=== PATIENT | male | born 1945 | race Caucasian/White ===

== ENCOUNTER → 2016-03-27 | Outpatient (CLI) | payer MEDICARE ==
[2016-03-27 12:03] LABS: Blood Urea Nitrogen 18 mg/dL (9-20); Non-African American GFR(MDRD) >60 (>60 ml/min/1.73 sqM)
== END | disposition home or self-care (01) ==
LOC: LABPAT 11:04
PROVIDERS: ATTEND Nurse Practitioner Family
DX: Z01.812 Encounter for preprocedural laboratory examination (principal); H93.19 Tinnitus, unspecified ear; H90.42 Sensorineural hearing loss, unilateral, left ear, with unrestricted hearing on the contralateral side
CPT/HCPCS: 36415; 82565; 84520

== ENCOUNTER → 2016-03-28 | Outpatient (CLI) | payer MEDICARE ==
--- NOTE | 2016-03-28 15:28 | MR ---
EXAMINATION TYPE: MR brain and iac wo/w con DATE OF EXAM: 03/28/2016 8:42 AM COMPARISON: NONE HISTORY: Tinnitus, hearing loss left, brain abscess 1998. CONTRAST: Performed utilizing 16 mL intravenous MultiHance gadolinium contrast. TECHNIQUE: Multiplanar, multiecho imaging on a 3.0 Jennifer magnet is performed through the brain. Atte ntion is paid to the internal auditory canals with thin section imaging. Postcontrast imaging is per formed through the internal auditory canals. FINDINGS: Craniovertebral junction is normal. The pituitary is normal. Diffusion-weighted imaging is performed. No suspicious hyperintensity is present to suggest an acute intracranial infarct or ac yocha dehe ischemic area. Signal within the brain has scattered areas of hyperintensity which are non-speci fic but could be related to microvascular ischemic changes. There is an old subcortical infarct withi n the right frontal lobe. Thin section imaging is performed through the internal auditory canals and cerebellar pontine angles. No cerebellar pontine angle masses are evident. The internal auditory canals appear normal without expansion or erosion. Postcontrast imaging was performed. No suspicious enhancement is evident within the internal audito ry canals or the included portions of the brain. Note is made of a retention cyst within the right maxillary sinus. IMPRESSIONS: 1. Normal internal auditory canals. 2. 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 3. Nonspecific punctate chronic appearing white matter ischemic changes.
== END | disposition home or self-care (01) ==
LOC: RADMRIMAIN 07:20
PROVIDERS: ATTEND Otolaryngology
DX: R90.89 Other abnormal findings on diagnostic imaging of central nervous system (principal); H90.42 Sensorineural hearing loss, unilateral, left ear, with unrestricted hearing on the contralateral side
CPT/HCPCS: 70553; A9577

== ENCOUNTER 2018-07-22 12:51 | Day surgery (SDC) | payer MEDICARE ==
[2018-07-20 13:07] VITALS: BMI 27.3
[~2018-07-22 12:51] MED LIST: LACTATED RINGERS 1,000 ML IV SCH
[2018-07-22 13:11] VITALS: TEMP 98.4
[2018-07-22] MEDS ORDERED: LIDOCAINE 1% 20 ML VIAL (10MG/ML) FOR IV START INTRADERMA ONE (13:11)
[2018-07-22] MEDS ORDERED: LIDOCAINE 1% INJ 10MG/ML (20 ML MDV) ONE (14:49)
[2018-07-22] MEDS ORDERED: PROPOFOL 10 MG/ML 20 ML VIAL IV ONE (14:49)
[2018-07-22 15:52] VITALS: BP 157/83; PULSE 69; RESP 16
--- NOTE | 2018-07-26 09:19 | P.OP ---
Date of Procedure: 07/22/18 Preoperative Diagnosis: Screening Postoperative Diagnosis: Diverticulosis Procedure(s) Performed: Colonoscopy Surgeon: Tamara Robledo Pathology: none sent Condition: stable Disposition: same day Indications for Procedure: 72-year-old male presents for screening colonoscopy. Risks, benefits and alternatives were explained to the patient. Patient did provide consent. Operative Findings: Diverticulosis Description of Procedure: The patient was brought into the endoscopy suite. The patient was placed in left lateral decubitus position and adequate sedation was achieved using conscious sedation. A digital rectal exam was performed and mild internal hemorrhoids were palpated. An endoscope was then placed in the rectum and advanced to the cecum as identified by landmarks including the appendix orifice and the ileocecal valve. The prep was good. The colonoscope was then slowly withdrawn, examining for any mucosal abnormalities. The cecum, ascending, transverse, descending and sigmoid colon were visualized adequately. There were no obvious large neoplastic lesion strut the colon. There were no significant polyps noted throughout the colon. The patient did have scattered diverticuli in the sigmoid colon. Retroflexion was performed in the rectum and mild internal hemorrhoids were visible. Excess air was removed, the colonoscope withdrawn and the procedure terminated. The patient was then transferred to the recovery unit in stable condition. Repeat colonoscopy should be performed in 10 years if symptomatic.
== END 2018-07-22 16:45 | disposition home or self-care (01) ==
LOC: ORWHC2ENDO 12:51
PROVIDERS: ATTEND Surgery
DX: Z12.11 Encounter for screening for malignant neoplasm of colon (principal); K57.30 Diverticulosis of large intestine without perforation or abscess without bleeding; K64.8 Other hemorrhoids; E78.5 Hyperlipidemia, unspecified; M19.90 Unspecified osteoarthritis, unspecified site; D86.9 Sarcoidosis, unspecified; Z87.442 Personal history of urinary calculi; Z86.79 Personal history of other diseases of the circulatory system; Z86.12 Personal history of poliomyelitis; Z79.899 Other long term (current) drug therapy; Z88.1 Allergy status to other antibiotic agents; Z88.8 Allergy status to other drugs, medicaments and biological substances
CPT/HCPCS: J2001; J2704; G0121; 45378

== ENCOUNTER → 2020-06-06 | Outpatient (CLI) | payer MEDICARE ==
--- NOTE | 2020-06-06 12:12 | CONS ---
CONSULTATION DATE OF SERVICE: 06/06/2020 This 74-year-old gentleman had been evaluated in the sleep center for possible obstructive sleep apnea-hypopnea syndrome. HISTORY OF PRESENT ILLNESS/SLEEP-WAKE EVALUATION: Patient usual sleep schedule from 9 or 10 p.m. until 7:30 a.m. Usually no problems with falling asleep. The patient has loud snoring and awakenings from sleep up to 6 times with nocturia. He worries about his sleep, sometimes feels sleepy during afternoon time. [place] Sleepiness Scale of the normal range 3. He has a lots of turning and tossing during the night. No history of hypnagogic hallucinations, sleep paralysis or cataplexy. PAST MEDICAL HISTORY: Positive for hyperlipidemia, sinuses problem, allergy, arthritis, back pain, polio, sarcoidosis. PAST SURGICAL HISTORY: Brain surgery for abscess many years ago, kidney surgery for stones, tonsillectomy. MEDICATIONS: Zocor 20 mg once a day, loratadine 10 mg once a day, melatonin 3 mg as needed at bedtime, meclizine 25 mg as needed. SOCIAL HISTORY: Negative for smoking or using alcohol. FAMILY HISTORY: Positive for sleep apnea. Two of his brothers has sleep apnea. Hypertension, diabetes, restless legs, acid reflux. REVIEW OF SYSTEMS: Multiple awakenings from sleep with nocturia. PHYSICAL EXAMINATION: GENERAL: gentleman without distress. VITAL SIGNS: BP 165/79, HR 75, RR 15, height 5 feet 9 inches, weight 190.8, temperature 97.4, oxygen saturation at room air 96%. HEENT: PERRLA, EOMI. Oropharynx extremely low position of soft palate. Mallampati 4. Wide neck is 17-1/2 inches in circumference. NECK: Supple, no JVD. Thyroid is not palpable. LUNGS: Clear to percussion and to auscultation. Good air exchange. No wheezing or rhonchi. HEART: S1, S2 regular. No murmurs, gallops, or rubs. ABDOMEN: Soft and nontender. Bowel sounds are present. No organomegaly appreciated. EXTREMITIES: No clubbing or cyanosis. PHARMACEUTICAL COMPOUNDING SUPERVISOR: Awake, alert, and oriented X3. Cranial nerves 2 to 7 intact. There is no fasciculation or atrophy. noted. No focal deficits observed. IMPRESSION: 1. Loud snoring, awakenings from sleep with nocturia up to 6 times, extremely low position of soft palate, Mallampati 4, wide neck 17-1/2 inches in circumference. Obstructive sleep apnea-hypopnea syndrome. 2. Hypertension in the office. 3. Hyperlipidemia. 4. History of sinus problems. 5. Allergies. 6. Arthritis. 7. Back pain. 8. Status post brain surgery for abscess. 9. Status post kidney surgery for stones. 10.Status post tonsillectomy. 11.History of polio, many years ago. 12.History of sarcoidosis, many years ago. PLAN: 1. Polysomnography for evaluation of patient's breathing during sleep. 2. CPAP/BiPAP titration if sleep study confirms obstructive sleep apnea-hypopnea syndrome. 3. Preferable position during sleep on the side. 4. No driving if patient feels any sleepiness. 5. I will see patient for follow up visit to explain results of testing and following plan. Thank you very much for referring this patient for consultation. Sincerely, Clyde Cruz MD, PhD, FAASM Diplomat of [place] [employer] [employer] Medical Reception of [facility] [place] MMODL / IJN: [id number] /
== END ==
LOC: SLEEP 10:37
PROVIDERS: ATTEND Internal Medicine
DX: R06.83 Snoring (principal); I10 Essential (primary) hypertension; E78.5 Hyperlipidemia, unspecified; M19.90 Unspecified osteoarthritis, unspecified site; T78.40XA Allergy, unspecified, initial encounter; M54.9 Dorsalgia, unspecified; Z90.89 Acquired absence of other organs; Z87.09 Personal history of other diseases of the respiratory system; Z86.12 Personal history of poliomyelitis; Z98.890 Other specified postprocedural states
CPT/HCPCS: 99211

== ENCOUNTER → 2020-10-03 | Outpatient (CLI) | payer MEDICARE ==
--- NOTE | 2020-10-03 23:26 | SFUN ---
SLEEP CENTER FOLLOW UP NOTE DATE OF SERVICE: 10/03/2020 74-year-old gentleman has been followed in Sleep Center for treatment of obstructive sleep apnea-hypopnea syndrome. Recently the patient had a home sleep apnea test, which showed that he had severe sleep apnea and I explained the results of the sleep study to the patient in details. Then he had titration. In 2 days, he was started on treatment with CPAP. With CPAP patient feels better, sleeps better, feels better during the day but continued to have significant amount of movements during the sleep. Sleep study showed that the patient had 6 periodic limb movements. Previously was on treatment with clonazepam, presently not on any medication for that reason. I checked his BiPAP unit. Maximal inspiratory pressure is 16, minimal expiratory pressure is 7, average pressure 12.7 over 8.7. Usage is 30/30 nights for more than 4 hours with average use of 9.1 hours per night. Leak is 18 L/minute which is borderline. Apnea-hypopnea index average for the last month 5.1, which is acceptable. During home sleep test, apnea-hypopnea index was 46 with oxygen desaturation to 78%. MEDICATIONS: Zocor, loratadine, meclizine, melatonin. PHYSICAL EXAMINATION: GENERAL: Patient in no distress. BP 157/81, HR 69, RR 50, weight 190, temp 97.6, oxygen saturation at room air 98%. HEENT: PERRLA, EOMI, evaluation of oropharynx showed tongue protrudes midline. NECK: Supple, no JVD. Thyroid is not palpable. LUNGS: Clear to percussion and to auscultation. Good air exchange. No wheezing or rhonchi. HEART: S1, S2 regular. No murmurs, gallops, or rubs. ABDOMEN: Soft and nontender. Bowel sounds are present. No organomegaly appreciated. EXTREMITIES: No clubbing or cyanosis. RN CAMP: Awake, alert, and oriented X3. Cranial nerves 2 to 7 intact. There is no fasciculation or atrophy. noted. No focal deficits observed. IMPRESSION: 1. Severe obstructive sleep apnea-hypopnea syndrome; apnea-hypopnea index 46 with oxygen desaturation to 70%. The patient demonstrated great compliance with treatment, benefitting from treatment. 2. Severe periodic limb movement by results of the titration 55.4 per hour with 11.7 per hour. 3. Hypertension in the office, was documented 2nd time. 4. Hyperlipidemia. 5. History of sinuses problem. 6. Allergies. 7. Arthritis. 8. Back pain. 9. History of kidney stones, status post surgical treatment. 10.Status post tonsillectomy. 11.History of sarcoidosis in the past. 12.History of polio in the past. PLAN: Prescription for Mirapex 0.125 mg 1-2 tablets before bedtime. 1. Polysomnography for evaluation of patient's breathing during sleep. 2. CPAP/BiPAP titration if sleep study confirms obstructive sleep apnea-hypopnea syndrome. 3. Preferable position during sleep on the side. 4. No driving if patient feels any sleepiness. 5. I will see patient for follow up visit to explain results of testing and following plan. 6. Please check iron profile, including ferritin level of iron. Low level iron may increase risk for periodic limb movements. Clyde Cruz MD, PhD, FAASM Diplomat of [employer] [employer] [employer] Hog Buyer of [facility] Thank you very much for allowing me to participate in management of your patient. Sincerely, Clyde Cruz MD, PhD, FAASM Diplomat of [place] [employer] Sleep Medicine Board of [place] [employer] Hog Buyer of [place] ending will work better. HAMILTONL / ASHLEIGHN: [id number] /
== END ==
LOC: SLEEP 13:59
PROVIDERS: ATTEND Internal Medicine
DX: G47.33 Obstructive sleep apnea (adult) (pediatric) (principal); G47.61 Periodic limb movement disorder; G47.36 Sleep related hypoventilation in conditions classified elsewhere; I10 Essential (primary) hypertension; E78.5 Hyperlipidemia, unspecified; T78.40XA Allergy, unspecified, initial encounter; M19.90 Unspecified osteoarthritis, unspecified site; M54.5 Low back pain; Z90.09 Acquired absence of other part of head and neck; Z87.442 Personal history of urinary calculi; Z87.09 Personal history of other diseases of the respiratory system; Z86.12 Personal history of poliomyelitis; Z99.89 Dependence on other enabling machines and devices; Z88.1 Allergy status to other antibiotic agents; Z88.5 Allergy status to narcotic agent

== ENCOUNTER → 2021-01-10 | Outpatient (CLI) | payer MEDICARE ==
--- NOTE | 2021-01-10 21:49 | SFUN ---
SLEEP CENTER FOLLOW UP NOTE DATE OF SERVICE: 01/10/2021 This 75-year-old gentleman has been followed in Sleep Center for treatment of obstructive sleep apnea-hypopnea syndrome. The patient continues to use his BiPAP equipment every night. Sometimes he has dryness in the mouth. [place] Sleepiness Scale today is 3, which is normal. I checked his BiPAP unit. Maximal inspiratory pressure is 16, minimal expiratory pressure 7, average pressure 12.5/8.5. Usage is 30/30 nights for more than 4 hours. Average 9.2 hours per night. Leak is 23 L/minute, which is borderline. Apnea-hypopnea index is 4.1, which is normal. MEDICATIONS: Zocor, loratadine, meclizine, Mirapex. PHYSICAL EXAMINATION: GENERAL APPEARANCE: Pleasant patient in no distress. VITAL SIGNS: BP 153/89, HR 72, RR 15, height 5 feet 8-1/2, weight 190.6, body mass index 28.4, temperature 97.3, oxygen saturation at room air 97%. HEENT: PERRLA, EOMI, evaluation of oropharynx showed tongue protrudes midline. NECK: Supple, no JVD. Thyroid is not palpable. LUNGS: Clear to percussion and to auscultation. Good air exchange. No wheezing or rhonchi. HEART: S1, S2 regular. No murmurs, gallops, or rubs. ABDOMEN: Soft and nontender. Bowel sounds are present. No organomegaly appreciated. EXTREMITIES: No clubbing or cyanosis. CERAMIC ARTIST: Awake, alert, and oriented X3. Cranial nerves 2 to 7 intact. There is no fasciculation or atrophy. noted. No focal deficits observed. IMPRESSION: 1. Severe obstructive sleep apnea-hypopnea syndrome. Apnea-hypopnea index 46 with oxygen desaturation to 78%. Patient demonstrated 100% compliance with treatment, benefitting from treatment. 2. Severe periodic limb movements, on treatment with Mirapex improvements. 3. Hypertension in the office. 4. Hyperlipidemia. 5. History of sinus problems. 6. Allergies. 7. Arthritis. 8. Back pain. 9. History of kidney stones, status post surgical treatment. 10.Status post tonsillectomy. 11.History of sarcoidosis in the past. 12.History of polio in the past. 13.Status post brain abscess surgery in April 1998. 14.History of blood clot internal hemorrhoid in 2013. PLAN: 1. Prescription for chin strap. 2. Prescription for Mirapex. 3. Patient will continue to use PAP equipment every night for the whole night. 4. Sleep hygiene with regular time in bed for at least 7-1/2 to 8 hours. 5. Precautions related to driving. No driving if feeling sleepiness. 6. I will maintain all necessary prescription for PAP supplies including mask, tube, filters. 7. Watching weight. 8. Follow-up visit in 6 months or earlier if patient has any problems. Thank you very much for allowing me to participate in the management of your patient. Sincerely, Clyde Cruz MD, PhD, FAASM Diplomat of [place] [employer] Sleep Medicine Board of [place] [employer] Medicine Medical Anthropologist of [facility] [place] JUAN / FEDERICO: [id number] /
== END ==
LOC: SLEEP 14:49
PROVIDERS: ATTEND Internal Medicine
DX: G47.33 Obstructive sleep apnea (adult) (pediatric) (principal); G47.36 Sleep related hypoventilation in conditions classified elsewhere; G47.61 Periodic limb movement disorder; M19.90 Unspecified osteoarthritis, unspecified site; M54.9 Dorsalgia, unspecified; Z87.09 Personal history of other diseases of the respiratory system; Z87.442 Personal history of urinary calculi; Z90.09 Acquired absence of other part of head and neck; Z86.12 Personal history of poliomyelitis; Z98.890 Other specified postprocedural states; Z86.718 Personal history of other venous thrombosis and embolism; Z99.89 Dependence on other enabling machines and devices; Z79.899 Other long term (current) drug therapy; Z88.1 Allergy status to other antibiotic agents

== ENCOUNTER → 2021-07-11 | Outpatient (CLI) | payer MEDICARE ==
--- NOTE | 2021-07-11 18:37 | SFUN ---
SLEEP CENTER FOLLOW UP NOTE DATE OF SERVICE: 07/11/2021 This 75-year-old gentleman has been followed in Sleep Center for treatment of obstructive sleep apnea-hypopnea syndrome. The patient continues to use his BiPAP equipment every night, but sometimes he has awakenings in the middle of the night. He has also a positive history of periodic limb movements, on treatment with dopaminergic agonists. [place] Sleepiness Scale today is 1, which is perfect. I checked his BiPAP unit. Maximal inspiratory pressure is 16, minimal expiratory pressure 7, pressure support 4. Average pressure 12.7/8.7. Usage 30/30 nights for more than 4 hours, average 9 hours per night. Leak is 22 L/minute. Apnea-hypopnea index is 4.1, which is normal. Patient's usual sleep schedule at the present time is from 9:30 or 10 p.m. until 7:30 or 8 a.m.; consequently he is in bed around 10 hours. MEDICATIONS: 1. Zocor 20 mg once a day. 2. Pramipexole 125 mg one tablet in the evening. 3. Loratadine 10 mg once a day. 4. Meclizine 25 mg as needed. 5. Different types of cream. PHYSICAL EXAMINATION: GENERAL APPEARANCE: Pleasant patient in no distress. VITAL SIGNS: BP 158/78, HR 69, RR 14, weight 193 pounds, height 5 feet 8-1/2 inches, temperature 97.2, oxygen saturation at room air 98%. HEENT: PERRLA, EOMI, evaluation of oropharynx showed tongue protrudes midline. NECK: Supple, no JVD. Thyroid is not palpable. LUNGS: Clear to percussion and to auscultation. Good air exchange. No wheezing or rhonchi. HEART: S1, S2 regular. No murmurs, gallops, or rubs. ABDOMEN: Soft and nontender. Bowel sounds are present. No organomegaly appreciated. EXTREMITIES: No clubbing or cyanosis. OFFICIAL COURT INTERPRETER: Awake, alert, and oriented X3. Cranial nerves 2 to 7 intact. There is no fasciculation or atrophy. noted. No focal deficits observed. IMPRESSION: 1. Severe obstructive sleep apnea-hypopnea syndrome; AHI 46. The patient demonstrated great compliance with treatment. Normal respiration on CPAP, but sometimes he has awakenings in the middle of the night. 2. Severe periodic limb movements, on treatment with Mirapex. He feels significant improvements while using Mirapex. 3. Hypertension in the office. 4. Hyperlipidemia. 5. History of sinus problems. 6. Allergies. 7. Back problems. 8. Arthritis. 9. History of kidney stones, status post surgical treatment. 10.Status post tonsillectomy. 11.History of sarcoidosis in the past. 12.History of polio in the past. 13.Status post brain abscess surgery in April 1998. 14.History of blood clot internal hemorrhoid in 2012. PLAN: 1. Continue Mirapex one tablet at bedtime. 2. The patient should stay in bed for 7-1/2 to 8 hours. Not necessary to stay 10 hours in bed. 3. Patient will continue to use PAP equipment every night for the whole night. 4. Sleep hygiene with regular time in bed for at least 7-1/2 to 8 hours. 5. Precautions related to driving. No driving if feeling sleepiness. 6. I will maintain all necessary prescription for PAP supplies including mask, tube, filters. 7. Watching weight. 8. Follow-up visit in 6 months or earlier if patient has any problems. Thank you very much for allowing me to participate in the management of your patient. Sincerely, Clyde Cruz MD, PhD, FAASM Diplomat of [place] [employer] Special[employer] Sleep Medicine Board of [place] [employer] of Internal Medicine Campaign Marketing Specialist of [facility] [place] JUAN / FEDERICO: [id number] /
== END ==
LOC: SLEEP 15:09
PROVIDERS: ATTEND Internal Medicine
DX: G47.33 Obstructive sleep apnea (adult) (pediatric) (principal); Z99.89 Dependence on other enabling machines and devices; G47.61 Periodic limb movement disorder; I10 Essential (primary) hypertension; E78.5 Hyperlipidemia, unspecified; T78.40XA Allergy, unspecified, initial encounter; M19.90 Unspecified osteoarthritis, unspecified site; Z98.890 Other specified postprocedural states; Z87.442 Personal history of urinary calculi; Z87.09 Personal history of other diseases of the respiratory system; Z86.12 Personal history of poliomyelitis; Z90.09 Acquired absence of other part of head and neck; Z87.19 Personal history of other diseases of the digestive system; Z86.61 Personal history of infections of the central nervous system

== ENCOUNTER → 2021-09-25 | Outpatient (CLI) | payer MEDICARE ==
[2021-09-25 23:48] LABS: ALT 29 U/L (10-49); AST 22 U/L (14-35); African American GFR (CKD) 94.8 (60.0-200.0); Albumin/Globulin Ratio 1.84 (1.60-3.17); Alkaline Phosphatase 87 U/L (41-126); BUN/Creat Ratio 22.48 Ratio (12.00-20.00); Blood Urea Nitrogen 20.3 mg/dL (9.0-27.0); Calcium 9.6 mg/dL (8.7-10.3); Carbon Dioxide 27.3 mmol/L (20.0-27.5); Chloride 106 mmol/L (96-109); Globulin 2.2 g/dL (1.6-3.3); Glucose 81 mg/dL (70-110); Non-African American GFR(CKD) 81.8 (60.0-200.0); Potassium 4.3 mmol/L (3.5-5.5); Sodium 144 mmol/L (135-145); Total Bilirubin <0.15 mg/dL (0.30-1.20); Total Protein 6.2 g/dL (6.2-8.2)
== END | disposition home or self-care (01) ==
LOC: LABWHC1 15:30
PROVIDERS: ATTEND Internal Medicine
DX: E78.5 Hyperlipidemia, unspecified (principal); R73.01 Impaired fasting glucose; R97.20 Elevated prostate specific antigen [PSA]
CPT/HCPCS: 36415; 80053; 83036; 84153

== ENCOUNTER → 2022-01-23 | Outpatient (CLI) | payer MEDICARE ==
--- NOTE | 2022-01-23 11:14 | P.PN ---
Subjective DATE: 01/23/2022 FOLLOW UP VISIT. Patient with obstructive sleep apnea hypopnea syndrome return to sleep center for follow-up visit. Information from previous visit have been reviewed. Patient is using BPAP equipment every night for the whole night, getting BPAP supplies in time. Recently patient changed his mask from full face mask to the nasal mask. He feels more comfortable with this type of mask. [place] sleepiness scale is 8, which is normal. I checked BPAP unit. Air filter needs to be replaced. PAP unit pressure maximal inspiratory pressure 17, minimal expiratory pressure 7, average pressure 12.8 over 8.8 cm H2O. Usage is 100 % for more then 4 hours, average 8.9 hours per night. Leak is 24 l/m, which is in acceptable range. Apnea Hypopnea Index is 3.5, which is normal. MEDICATIONS:1. Zocor 20 mg once a day. 2. Pramipexole 0.125 mg 1 tablet at bedtime 3. Loratidine 10 mg once a day During physical exam: GENERAL: A pleasant patient without any distress. VITAL SIGNS: BP 161/83, HR 58, RR 16, weight 186.4, temperature 96.5, oxygen saturation at room air 99 % . HEENT: PERRLA, EOMI.low position of soft palate. NECK: Supple. No JVD. LUNGS: Clear to percussion and to auscultation. Good air exchange. No wheezing or rhonchi. HEART: S1, S2 regular. ABDOMEN: Soft and nontender.[] EXTREMITIES: No clubbing or cyanosis. POLICE COMMANDING OFFICER: Awake, alert, and oriented x3. No focal deficit. Impressions: 1. Obstructive sleep apnea-hypopnea syndrome. Patient demonstrated great compliance with treatment, benefiting from treatment. 2. Periodic limb movements. Patient is on treatment with Mirapex. No complaints of the present time.. 3. Hypertension and office again. 4. Hyperlipidemia. 5. ALLERGIES. 6. Back problems. 7. Arthritis. 8. History of kidney stones, status post surgical treatment. 9. Status post tonsillectomy. 10. History of sarcoidosis in the past. 11. History of poor healing the past. 12. Status post brain abscess surgery in April 1998. Plan: 1. Continue using PAP equipment every night for the whole night. 2. To change air filter at least 1-2 times per month. 3. PAP unit should stay lower then position of the head. 4. Advised patient to remove all remaining water from humidifier canister daily and make it dry after each usage. Refill canister with fresh distilled water before each usage. 5. Sleep hygiene with regular time in bed for at least 8 hours. 6. Precautions related to driving. No driving if feel any sleepiness. 7. I will maintain prescription for PAP supplies including mask, tube, filters. 8. Follow up visit in 6 months or earlier if patient has any problems. 9. Watching weight. Thank you very much for allowing me to participate in the management of your patient. Clyde Cruz MD, PhD, FAASM. Diplomat of [place] [employer], Sleep Medicine Board by [place] [employer] Superintendent Refuse Disposal of [facility] [place]
== END ==
LOC: SLEEP 10:34
PROVIDERS: ATTEND Internal Medicine
DX: G47.33 Obstructive sleep apnea (adult) (pediatric) (principal); Z99.89 Dependence on other enabling machines and devices; G47.61 Periodic limb movement disorder; I10 Essential (primary) hypertension; E78.5 Hyperlipidemia, unspecified; M13.80 Other specified arthritis, unspecified site; M54.50 Low back pain, unspecified; Z98.890 Other specified postprocedural states; Z87.09 Personal history of other diseases of the respiratory system; Z87.2 Personal history of diseases of the skin and subcutaneous tissue; Z88.0 Allergy status to penicillin; Z88.1 Allergy status to other antibiotic agents; Z88.8 Allergy status to other drugs, medicaments and biological substances
CPT/HCPCS: 99212

== ENCOUNTER → 2022-03-31 | Outpatient (CLI) | payer MEDICARE | END | disposition home or self-care (01) | LOC: LABWHC1 08:07 | PROVIDERS: ATTEND Urology | DX: R97.20 Elevated prostate specific antigen [PSA] (principal) | CPT/HCPCS: 36415; 84153 ==

== ENCOUNTER → 2022-07-07 | Outpatient (CLI) | payer MEDICARE ==
[2022-07-07 16:14] LABS: Basophils # (A) 0.03 X 10*3/uL (0.00-0.10); Basophils % (A) 0.5 %; Eosinophils # (A) 0.08 X 10*3/uL (0.04-0.35); Eosinophils % (A) 1.4 %; HCT 48.2 % (39.6-50.0); HGB 15.7 g/dL (13.0-17.0); Immature Grans, Automated 0.2 %; Lymphocytes # (A) 1.19 X 10*3/uL (0.90-5.00); Lymphocytes % (A) 20.3 %; MCH 32.3 pg (27.0-32.0); MCHC 32.6 g/dL (32.0-37.0); MCV 99.2 fL (80.0-97.0); Mean Platelet Volume 11.5 fL (9.5-12.2); Monocytes # (A) 0.44 X 10*3/uL (0.20-1.00); Monocytes % (A) 7.5 %; NRBC Per 100 WBC 0 /100 WBCS (0.0-0.0); Neutrophils % (A) 70.1 %; Platelet Count 198 X 10*3/uL (140-440); RBC 4.86 X 10*6/uL (4.40-5.60); RDW 12.6 % (11.5-14.5); WBC 5.85 X 10*3/uL (4.50-10.00)
[2022-07-07 16:20] LABS: ALT 20 U/L (10-49); AST 21 U/L (14-35); African American GFR (CKD) 89.6 (60.0-200.0); Albumin 4.4 g/dL (3.8-4.9); Albumin/Globulin Ratio 2.15 (1.60-3.17); Alkaline Phosphatase 80 U/L (41-126); BUN/Creat Ratio 24.89 Ratio (12.00-20.00); Blood Urea Nitrogen 23.4 mg/dL (9.0-27.0); Calcium 9.3 mg/dL (8.7-10.3); Carbon Dioxide 26.7 mmol/L (20.0-27.5); Chloride 110 mmol/L (96-109); Chol/HDL Ratio 2.84 Ratio; Glucose 93 mg/dL (70-110); LDL Cholesterol,Calculated 69.2 mg/dL (0.0-131.0); Non-African American GFR(CKD) 77.3 (60.0-200.0); Sodium 146 mmol/L (135-145); Total Protein 6.4 g/dL (6.2-8.2)
== END | disposition home or self-care (01) ==
LOC: LABWHC1 08:26
PROVIDERS: ATTEND Urology
DX: Z00.00 Encounter for general adult medical examination without abnormal findings (principal); E78.00 Pure hypercholesterolemia, unspecified; R97.20 Elevated prostate specific antigen [PSA]
CPT/HCPCS: 36415; 80053; 80061; 84153; 85025

== ENCOUNTER → 2022-07-23 | Outpatient (CLI) | payer MEDICARE ==
--- NOTE | 2022-07-23 16:38 | P.PN ---
Subjective DATE: 07/23/2022 FOLLOW UP VISIT. Patient with obstructive sleep apnea hypopnea syndrome return to sleep center for follow-up visit. Information from previous visit have been reviewed. Patient is using PAP equipment every night for the whole night, getting PAP supplies in time. The patient does not have significant problems with the mask, PAP unit and humidification. [place] sleepiness scale is 3, which is normal. I checked information from PAP unit. PAP unit pressure 7-17, average 12.8 cm H2O. Usage is 100 % for more then 4 hours, average 9.2 hours per night. Leak is 24 l/m, which is in acceptable range. Apnea Hypopnea Index is 4.7, which is normal. MEDICATIONS:1. Zocor 20 mg once a day 2. . Pramipexole 0.125 mg once a day 3. Amlodipine 5 mg once a day 4. Lisinopril 5 mg once a day During physical exam: GENERAL: A pleasant patient without any distress. VITAL SIGNS: BP 154/74, HR 73, RR 12 , weight 190.0, temperature 97.3, oxygen saturation at room air 98 % . HEENT: PERRLA, EOMI.low position of soft palate, Mallapati 3 . NECK: Supple. No JVD. LUNGS: Clear to percussion and to auscultation. Good air exchange. No wheezing or rhonchi. HEART: S1, S2 regular. ABDOMEN: Soft and nontender.[] EXTREMITIES: No clubbing or cyanosis. ACID CLEANER: Awake, alert, and oriented x3. No focal deficit. Impressions: 1. Obstructive sleep apnea-hypopnea syndrome. Patient demonstrated great compliance with treatment, benefiting from treatment. 2. Periodic limb movements. Patient continued treatment with Mirapex lowest dose 0.125 mg at bedtime. 3. Hypertension. 4. Hyperlipidemia. 5. Back problems. 6. Arthritis. 7. History of kidney stones, status post surgical treatment. 8. History of sarcoidosis in the past. 9. Status post tonsillectomy. 10. Status post brain abscess surgery in April 1998. Plan: 1. Continue using PAP equipment every night for the whole night. 2. To change air filter at least 1-2 times per month. 3. PAP unit should stay lower then position of the head. 4. Advised patient to remove all remaining water from humidifier canister daily and make it dry after each usage. Refill canister with fresh distilled water before each usage. 5. Sleep hygiene with regular time in bed for at least 8 hours. 6. Precautions related to driving. No driving if feel any sleepiness. 7. I will maintain prescription for PAP supplies including mask, tube, filters. 8. Watching weight. 9.Follow up visit in 6 months or earlier if patient has any problems. Thank you very much for allowing me to participate in the management of your patient. Clyde Cruz MD, PhD, FAASM. Diplomat of [place] [employer] Sleep Medicine, Sleep Medicine Board by [place] [employer] Medicine Flight Controls Engineer of [facility] [place]
== END ==
LOC: SLEEP 15:03
PROVIDERS: ATTEND Internal Medicine
DX: G47.33 Obstructive sleep apnea (adult) (pediatric) (principal); D86.9 Sarcoidosis, unspecified; E78.5 Hyperlipidemia, unspecified; I10 Essential (primary) hypertension; Z79.899 Other long term (current) drug therapy; Z86.61 Personal history of infections of the central nervous system; Z87.442 Personal history of urinary calculi; Z99.89 Dependence on other enabling machines and devices; M19.90 Unspecified osteoarthritis, unspecified site; Z98.890 Other specified postprocedural states; M54.9 Dorsalgia, unspecified; G47.61 Periodic limb movement disorder; Z88.0 Allergy status to penicillin; Z88.1 Allergy status to other antibiotic agents; Z88.8 Allergy status to other drugs, medicaments and biological substances

== ENCOUNTER → 2023-02-04 | Outpatient (CLI) | payer MEDICARE ==
--- NOTE | 2023-02-04 17:32 | P.PN ---
Subjective DATE: 02/04/2023 FOLLOW UP VISIT. Patient with obstructive sleep apnea hypopnea syndrome return to sleep center for follow-up visit. Information from previous visit have been reviewed. Patient is using PAP equipment every night for the whole night, getting PAP supplies in time. The patient does not have significant problems with the mask, PAP unit and humidification. [place] sleepiness scale is 5, which is normal. I checked information from PAP unit. PAP unit pressure maximal inspiratory pressure 17, minimal expiratory pressure 7, pressure-support 4, average pressure 12.4 over 8.4 cm H2O. Usage is 100 % for more then 4 hours, average 9.6 hours per night. Leak is 28 l/m, which is in acceptable range. Apnea Hypopnea Index is 3.6, which is normal. MEDICATIONS:1. Zocor 20 mg once a day 2. Pramipexole 0.125 mg once a day 3. Amlodipine 5 mg once a day 4. Lisinopril 5 mg once a day During physical exam: GENERAL: A pleasant patient without any distress. VITAL SIGNS: BP 155/71, HR 72, RR 16 , weight 196.8, temperature 98.0, oxygen saturation at room air 98 % . HEENT: PERRLA, EOMI.low position of soft palate, Mallapati 3 . NECK: Supple. No JVD. LUNGS: Clear to percussion and to auscultation. Good air exchange. No wheezing or rhonchi. HEART: S1, S2 regular. ABDOMEN: Soft and nontender.[] EXTREMITIES: No clubbing or cyanosis. COOK HOUSE LABORER: Awake, alert, and oriented x3. No focal deficit. Impressions: 1. Obstructive sleep apnea-hypopnea syndrome. Patient demonstrated great compliance with treatment, benefiting from treatment. 2. Periodic limb movements, patient is on treatment to with the pramipexole wi th lowest dose. 3. Hypertension. 4. Hyperlipidemia. 5. Arthritis. 6. Back problems. 7. History of kidney stones, status post surgical treatment. 8. History of sarcoidosis in the past. 9. Status post brain abscess surgery in April 1998. 10. Status post tonsillectomy. Plan: 1. Continue using PAP equipment every night for the whole night. 2. To change air filter at least 1-2 times per month. 3. PAP unit should stay lower then position of the head. 4. Advised patient to remove all remaining water from humidifier canister daily and make it dry after each usage. Refill canister with fresh distilled water before each usage. 5. Sleep hygiene with regular time in bed for at least 8 hours. 6. Precautions related to driving. No driving if feel any sleepiness. 7. I will maintain prescription for PAP supplies including mask, tube, filters. 8. Follow up visit in 6 months or earlier if patient has any problems. 9. Watching weight. Thank you very much for allowing me to participate in the management of your patient. Clyde Cruz MD, PhD, FAASM. Diplomat of [place] [employer], Sleep Medicine Board by [place] [employer] Home Health Care Provider of [facility] [place]
== END ==
LOC: SLEEP 14:49
PROVIDERS: ATTEND Internal Medicine
DX: G47.33 Obstructive sleep apnea (adult) (pediatric) (principal); D86.9 Sarcoidosis, unspecified; E78.5 Hyperlipidemia, unspecified; I10 Essential (primary) hypertension; M19.90 Unspecified osteoarthritis, unspecified site; M51.9 Unspecified thoracic, thoracolumbar and lumbosacral intervertebral disc disorder; M54.9 Dorsalgia, unspecified; Z98.890 Other specified postprocedural states; Z90.89 Acquired absence of other organs; Z99.89 Dependence on other enabling machines and devices; Z87.442 Personal history of urinary calculi; Z86.61 Personal history of infections of the central nervous system; Z79.899 Other long term (current) drug therapy; Z88.0 Allergy status to penicillin; Z88.8 Allergy status to other drugs, medicaments and biological substances
CPT/HCPCS: 99212

== ENCOUNTER → 2023-02-06 | Outpatient (CLI) | payer MEDICARE | END | disposition home or self-care (01) | LOC: LABWHC1 12:29 | PROVIDERS: ATTEND Urology | DX: R97.20 Elevated prostate specific antigen [PSA] (principal) | CPT/HCPCS: 36415; 84153; 84154 ==

== ENCOUNTER → 2023-06-26 | Outpatient (CLI) | payer MEDICARE | END | disposition home or self-care (01) | LOC: LABWHC1 11:01 | PROVIDERS: ATTEND Urology | DX: R97.20 Elevated prostate specific antigen [PSA] (principal) | CPT/HCPCS: 36415; 84153 ==

== ENCOUNTER → 2023-07-20 | Outpatient (CLI) | payer MEDICARE ==
--- NOTE | 2023-07-21 07:51 | MR ---
EXAMINATION TYPE: MR Prostate wo/w con DATE OF EXAM: 07/20/2023 9:22 AM COMPARISON: None. CLINICAL INDICATION:Male, 77 years old with history of R97.20 elevated psa; Elevated PSA. TECHNIQUE: Multi-planar, multi-sequence imaging of the pelvis is performed prior to and following the uncomplicated administration of bolus intravenous gadolinium. CONTRAST: 8.5 Gadavist Interpretive Criteria: PI-RADS v2.1 SERUM PSA: 5.2 on 06/26/2023. 4.5 on 02/06/2023. SURGICAL PATHOLOGY: Negative biopsy on 1222 FINDINGS: Prostatic dimensions: 4.6 x 5.0 x 3.6 cm. "Bullet" Volume: 54.19 (PSA density=0.10 ng/mL/mL) CENTRAL GLAND (Central and Transition Zones/CZ+TZ): Multiple bilateral, heterogenous appearing hypertrophic stromal nodules, without suspicious lesion. M edian lobe hypertrophy with protrusion into the base of the bladder. (PI-RADS 2) PERIPHERAL ZONE (PZ): Bilateral linear, indistinct wedgelike areas of low ADC, and low T2 signal, No evidence of masslike a bnormality, or localized perfusional hypervascularity, to further suggest a focus of clinically signi ficant prostate cancer. (PI-RADS 2) SEMINAL VESICLES (SV): Symmetric and unremarkable. PERIPROSTATIC TISSUES: Unremarkable. LYMPH NODES: No enlarged pelvic lymph node. REMAINING PELVIS: Bladder wall is within normal limits given distention. No abnormal free or organized intrapelvic fluid collection. No pathologic bowel dilation or mural thickening. Bilateral fat containing inguinal hernias. OSSEOUS STRUCTURES: No suspicious osseous abnormality. Left lower extremity intramuscular lipoma measuring 9.0 x 4.7 x 6.0 cm. IMPRESSION: 1. No specific features for high-risk prostate cancer. Maximum PI-RADS score: 2. 2. Moderate BPH, estimated gland volume 54.19 mL.
== END | disposition home or self-care (01) ==
LOC: RADMRIMAIN 07:40
PROVIDERS: ATTEND Urology
DX: N40.0 Benign prostatic hyperplasia without lower urinary tract symptoms (principal); R97.20 Elevated prostate specific antigen [PSA]
CPT/HCPCS: 72197; A9585

== ENCOUNTER → 2023-07-30 | Outpatient (CLI) | payer MEDICARE ==
--- NOTE | 2023-07-30 15:54 | P.PN ---
Subjective DATE: 07/30/2023 FOLLOW UP VISIT. Patient with obstructive sleep apnea hypopnea syndrome return to sleep center for follow-up visit. Information from previous visit have been reviewed. Patient is using PAP equipment every night for the whole night, getting PAP supplies in time. The patient does not have significant problems with the mask, PAP unit and humidification. [place] sleepiness scale is 4. I checked information from PAP unit. PAP unit pressure maximal inspiratory pressure 17, minimal expiratory pressure 7, pressure support 4, average pressure 12.8/8.8 cm H2O. Usage is 100% for more then 4 hours, average 9 hours per night. Leak is 28 l/m, which is in acceptable range. Apnea Hypopnea Index is 4.9, which is normal. MEDICATIONS:1. Zocor 20 mg once a day 2. Pramipexole 0.125 mg once at bedtime 3. Amlodipine 5 mg once a day 4. Lisinopril 5 mg once a day During physical exam: GENERAL: A pleasant patient without any distress. VITAL SIGNS: Please see below, weight 194 pounds, BMI 29.7. HEENT: PERRLA, EOMI.low position of soft palate, Mallapati 3 . NECK: Supple. No JVD. LUNGS: Clear to percussion and to auscultation. Good air exchange. No wheezing or rhonchi. HEART: S1, S2 regular. ABDOMEN: Soft and nontender.[] EXTREMITIES: No clubbing or cyanosis. WATER LEAK REPAIRER: Awake, alert, and oriented x3. No focal deficit. Impressions: 1. Obstructive sleep apnea-hypopnea syndrome. Patient demonstrated great compliance with treatment, benefiting from treatment. 2. Restless leg syndrome and periodic limb movements. 3. Hypertension. 4. Hyperlipidemia. 5. Back problems. 6. Arthritis. 7. History of kidney stones, status post surgical treatment. 8. History of sarcoidosis in the past. 9. Status post brain abscess surgery. 10. Status post tonsillectomy. 11. Status post rotator cuff repair. Plan: 1. Continue using PAP equipment every night for the whole night. 2. To change air filter at least 1-2 times per month. 3. PAP unit should stay lower then position of the head. 4. Advised patient to remove all remaining water from humidifier canister daily and make it dry after each usage. Refill canister with fresh distilled water before each usage. 5. Sleep hygiene with regular time in bed for at least 8 hours. 6. Precautions related to driving. No driving if feel any sleepiness. 7. I will maintain prescription for PAP supplies including mask, tube, filters. 8. Follow up visit in 6 months or earlier if patient has any problems. 9. Watching and continue losing weight. Thank you very much for allowing me to participate in the management of your patient. Clyde Cruz MD, PhD, FAASM. Diplomat of [place] [employer], Sleep Medicine Board by [place] [employer] Imaging Administrator of [facility] [place] Objective - Vital Signs Vital signs: Vital Signs Temp 98.4 F 07/30/23 15:27 Pulse 70 07/30/23 15:27 Resp 16 07/30/23 15:27 BP 149/77 07/30/23 15:27 Pulse Ox 99 07/30/23 15:27 FiO2 Intake & Output 07/29/23 07/30/23 07/30/23 18:59 06:59 18:59 Weight 87.997 kg
[2023-07-30 15:55] VITALS: BP 149/77; PULSE 70; RESP 16; TEMP 98.4
== END ==
LOC: 3 N SLEEP 15:09
PROVIDERS: ATTEND Internal Medicine
DX: G47.33 Obstructive sleep apnea (adult) (pediatric) (principal); G25.81 Restless legs syndrome; I10 Essential (primary) hypertension; G47.61 Periodic limb movement disorder; E78.5 Hyperlipidemia, unspecified; M53.9 Dorsopathy, unspecified; M19.90 Unspecified osteoarthritis, unspecified site; Z99.89 Dependence on other enabling machines and devices; Z98.890 Other specified postprocedural states; Z90.89 Acquired absence of other organs; Z86.61 Personal history of infections of the central nervous system; Z87.442 Personal history of urinary calculi; Z79.899 Other long term (current) drug therapy; Z88.0 Allergy status to penicillin; Z88.8 Allergy status to other drugs, medicaments and biological substances; Z87.39 Personal history of other diseases of the musculoskeletal system and connective tissue
CPT/HCPCS: 99212

== ENCOUNTER → 2024-01-18 | Outpatient (CLI) | payer MEDICARE | END | disposition home or self-care (01) | LOC: LABWHC1 08:50 | PROVIDERS: ATTEND Urology | DX: R97.20 Elevated prostate specific antigen [PSA] (principal) | CPT/HCPCS: 36415; 84153 ==

== ENCOUNTER → 2024-01-28 | Outpatient (CLI) | payer MEDICARE ==
[2024-01-28 15:50] VITALS: BP 143/71; PULSE 64; RESP 16; TEMP 97.8
--- NOTE | 2024-01-28 17:48 | P.PROGSL ---
Subjective DATE: 01/28/2024 FOLLOW UP VISIT. Patient with obstructive sleep apnea hypopnea syndrome return to sleep center for follow-up visit. Information from previous visit have been reviewed. Patient is using PAP equipment every night for the whole night, getting PAP supplies in time. The patient does not have significant problems with the mask, PAP unit and humidification. [place] sleepiness scale is 4, which is normal. I checked information from PAP unit. PAP unit pressure maximal inspiratory pressure 17, minimal expiratory pressure 7, pressure support 4, average pressure 12.5/8.5 cm H2O. Usage is 100% for more then 4 hours, average 9.4 hours per night. Leak is 22 l/m, which is in acceptable range. Apnea Hypopnea Index is 3.8, which is normal. MEDICATIONS have been reviewed, please see below. During physical exam: GENERAL: A pleasant patient without any distress. VITAL SIGNS: Please see below, weight is 196 lbs. HEENT: PERRLA, EOMI.low position of soft palate, Mallapati 3 . NECK: Supple. No JVD. LUNGS: Clear to percussion and to auscultation. Good air exchange. No wheezing or rhonchi. HEART: S1, S2 regular. ABDOMEN: Soft and nontender.[] EXTREMITIES: No clubbing or cyanosis. SHADE CLOTH FINISHER: Awake, alert, and oriented x3. No focal deficit. Impressions: 1. Obstructive sleep apnea-hypopnea syndrome. Patient demonstrated great compliance with treatment, benefiting from treatment. 2. Restless leg syndrome and periodic limb movements. 3. Hypertension. 4. Hyperlipidemia. 5. History of kidney stones, status post surgical treatment. 6. Back problems. 7. History of sarcoidosis in the past. 8. Status post brain abscess surgery. 9. Status post rotator cuff repair. 10. Status post tonsillectomy. Plan: 1. Continue using PAP equipment every night for the whole night. 2. Sleep hygiene with regular time in bed for at least 7.5-8 hours 3. PAP unit should stay lower then position of the head. 4. Advised patient to remove all remaining water from humidifier canister daily and make it dry after each usage. Refill canister with fresh distilled water before each usage. 5. Watching weight. 6. Precautions related to driving. No driving if feel any sleepiness. 7. I will maintain prescription for PAP supplies including mask, tube, filters. 8. Follow up visit in 8 months or earlier if patient has any problems. 9. Patient will continue treatment with pramipexole 0.125 mg at bedtime. Thank you very much for allowing me to participate in the management of your patient. Clyde Cruz MD, PhD, FAASM. Diplomat of [place] [employer], Sleep Medicine Board by [place] [employer] Machine Tester of [facility] [place] cc: Lb Sherwood DO Objective - Vital Signs Vital Signs: Vital Signs Temp 97.8 F 01/28/24 15:49 Pulse 64 01/28/24 15:49 Resp 16 01/28/24 15:49 BP 143/71 01/28/24 15:49 Pulse Ox 98 01/28/24 15:49 FiO2 Intake & Output 01/27/24 01/28/24 01/28/24 18:59 06:59 18:59 Weight 88.904 kg Home Medications: Home Medications Medication Instructions Recorded Confirmed Type Simvastatin [Zocor] 20 mg PO HS 07/20/18 01/28/24 History Loratadine [Claritin] 10 mg PO DAILY 07/30/23 01/28/24 History Multivitamin [Multivitamins Adult See Rx Instructions .ROUTE .COMPLEX 07/30/23 01/28/24 History Gummies] Pramipexole [Mirapex] 0.125 mg PO HS 07/30/23 01/28/24 History amLODIPine [Norvasc] 5 mg PO DAILY 07/30/23 01/28/24 History lisinopriL [Zestril] 5 mg PO DAILY 07/30/23 01/28/24 History Cholecalciferol [Vitamin D3 (25 25 mcg PO DAILY 01/28/24 01/28/24 History Mcg = 1000 Iu)] Docusate [Colace] 200 mg DAILY PRN 01/28/24 01/28/24 History Fluocinonide 0.05% [Lidex 0.05% See Rx Instructions .ROUTE 01/28/24 01/28/24 History cream] .COMPLEX PRN Sildenafil Citrate See Rx Instructions .ROUTE 01/28/24 01/28/24 History .COMPLEX PRN
== END ==
LOC: 3 N SLEEP 15:29
PROVIDERS: ATTEND Internal Medicine
DX: G47.33 Obstructive sleep apnea (adult) (pediatric) (principal); G25.81 Restless legs syndrome; I10 Essential (primary) hypertension; E78.5 Hyperlipidemia, unspecified; M53.9 Dorsopathy, unspecified; Z87.09 Personal history of other diseases of the respiratory system; Z98.890 Other specified postprocedural states; Z90.89 Acquired absence of other organs; Z87.442 Personal history of urinary calculi; Z99.89 Dependence on other enabling machines and devices; Z88.0 Allergy status to penicillin; Z88.8 Allergy status to other drugs, medicaments and biological substances
CPT/HCPCS: 99212

== ENCOUNTER → 2024-03-10 | Outpatient (CLI) | payer MEDICARE | END | disposition home or self-care (01) | LOC: LABWHC1 13:13 | PROVIDERS: ATTEND Urology | DX: R97.20 Elevated prostate specific antigen [PSA] (principal) | CPT/HCPCS: 36415; 84153 ==

== ENCOUNTER → 2024-06-10 | Outpatient (CLI) | payer MEDICARE ==
--- NOTE | 2024-06-10 12:34 | XR ---
EXAMINATION TYPE: XR lumbar spine 2 or 3V DATE OF EXAM: 06/10/2024 12:20 PM COMPARISON: None CLINICAL INDICATION: Male, 78 years old with history of M48.061 DEGENERATIVE LUMBAR SPINAL DISEASE, p ain TECHNIQUE: XR lumbar spine 2 or 3V - Frontal, lateral and coned in L5-S1 lateral views of the spine. FINDINGS: No evidence of any acute osseous pathology. No evidence of loss of vertebral body height i s seen. There is normal alignment of the lumbar vertebral bodies. Scattered disc space narrowing. Mul tilevel marginal osteophyte formation throughout the visualized spine. There is facet joint arthropat hy throughout the spine. There is at least moderate to severe L5-S1 neural foraminal stenosis. IMPRESSION: 1. No acute fracture. 2. Moderate multilevel disc degeneration. [facility], , 06/10/2024 12:32 PM
[2024-06-10 14:58] LABS: Basophils # (A) 0.03 X 10*3/uL (0.00-0.10); Basophils % (A) 0.5 %; Eosinophils # (A) 0.07 X 10*3/uL (0.04-0.35); Eosinophils % (A) 1.1 %; HCT 47.5 % (39.6-50.0); HGB 15.7 g/dL (13.0-17.0); Lymphocytes # (A) 1.23 X 10*3/uL (0.90-5.00); Lymphocytes % (A) 20.1 %; MCH 32.3 pg (27.0-32.0); MCHC 33.1 g/dL (32.0-37.0); MCV 97.7 FL (80.0-97.0); Monocytes # (A) 0.66 X 10*3/uL (0.20-1.00); Monocytes % (A) 10.8 %; NRBC Per 100 WBC 0 X 10*3/uL (0.00-0.01); Neutrophils # (A) 4.12 X 10*3/uL (1.80-7.70); Neutrophils % (A) 67.2 %; Platelet Count 220 X 10*3/uL (140-440); RBC 4.86 X 10*6/uL (4.40-5.60); RDW 12.4 % (11.5-14.5); WBC 6.13 X 10*3/uL (4.50-10.00)
[2024-06-10 15:22] LABS: ALT 20 U/L (10-49); AST 22 U/L (14-35); Albumin 4.3 g/dL (3.8-4.9); Albumin/Globulin Ratio 1.95 Ratio (1.60-3.17); Alkaline Phosphatase 82 U/L (41-126); BUN/Creat Ratio 17.67 Ratio (12.00-20.00); Blood Urea Nitrogen 15.9 mg/dL (9.0-27.0); Calcium 9.4 mg/dL (8.7-10.3); Carbon Dioxide 27.5 mmol/L (21.6-31.8); Chloride 107 mmol/L (96-109); Globulin 2.2 g/dL (1.6-3.3); Glucose 96 mg/dL (70-110); Potassium 4.4 mmol/L (3.5-5.5); Sodium 146 mmol/L (135-145); Total Bilirubin 0.3 mg/dL (0.3-1.2); Total Protein 6.5 g/dL (6.2-8.2)
== END | disposition home or self-care (01) ==
LOC: LABWHC1 11:29
PROVIDERS: ATTEND Family Medicine
DX: I10 Essential (primary) hypertension (principal); M62.838 Other muscle spasm; M48.061 Spinal stenosis, lumbar region without neurogenic claudication; S50.812A Abrasion of left forearm, initial encounter; R97.20 Elevated prostate specific antigen [PSA]; Z86.12 Personal history of poliomyelitis
CPT/HCPCS: 36415; 72100; 80053; 84153; 84443; 85025

== ENCOUNTER → 2024-06-29 | Outpatient (CLI) | payer MEDICARE ==
--- NOTE | 2024-06-29 11:14 | BD ---
EXAMINATION TYPE: Axial Bone Density DATE OF EXAM: 06/29/2024 CLINICAL HISTORY: 78 years old Male. ICD-10 CODE: Z8612 HX POLIOMYELITIS [id number] OSTEOPENIA SPINE , Ad ditional History: Height: 67 Weight: 194 FRAX RISK QUESTIONS: nothing to note here RISK FACTORS nothing to note here HISTORY OF: MEDICATIONS: bp meds, vit d and calcium, topical steroids, EXAM MEASUREMENTS: Bone mineral densitometry was performed using the [employer] System. Bone mineral density as measured about the Lumbar spine is: ----- L1-L4(G/cm2): 1.323 T Score Values are as follows: ----- L1: -0.1 ----- L2: 1.4 ----- L3: 1.1 ----- L4: 2.0 ----- L1-L4: 1.2 Z Score Values are as follows: ----- L1: 0.0 ----- L2: 1.5 ----- L3: 1.2 ----- L4: 2.0 ----- L1-L4: 1.2 Bone mineral density is his first bone density scan, baseline study. Bone mineral density about the R hip (g/cm2): 1.005 Bone mineral density about the L hip (g/cm2): 0.976 T Score values are as follows: -----R Neck: -1.4 -----L Neck: -1.7 -----R Total: 0.0 -----L Total: -0.3 Z Score values are as follows: -----R Neck: -0.4 -----L Neck: -0.8 -----R Total: 0.3 -----L Total: 0.1 Bone mineral density is a baseline study today. FRAX%s: The graph provided illustrates a 9.1% chance for a major osteoporotic fx and a 3.6% chance fo r the hips probability for fx in 10 years time. IMPRESSION: Osteopenia (T Score between -2.5 and -1). There is slightly increased risk of fracture and the patient may be considered for treatment. Re-Screen 2-5 years. NOTE: T-SCORE=SD OF THE YOUNG ADULT MEAN. [facility], , 06/29/2024 11:11 AM
== END | disposition home or self-care (01) ==
LOC: RADBDWWP 10:17
PROVIDERS: ATTEND Family Medicine
DX: M85.89 Other specified disorders of bone density and structure, multiple sites (principal); Z86.12 Personal history of poliomyelitis
CPT/HCPCS: 77080

== ENCOUNTER 2024-07-14 07:18 | Day surgery (SDC) | payer MEDICARE ==
--- NOTE | 2024-07-12 21:01 | P.GSHP ---
History of Present Illness H&P Date: 07/12/24 Chief Complaint: Elevated PSA level The patient is an 78-year-old male whose father and 2 brothers have prostate cancer. The patient underwent a prostate ultrasound with biopsies in March 2021, showing no evidence of malignancy. His prostate volume at that time was 29 cc, and his PSA level was 4.3. He developed erectile dysfunction following those biopsies, presumably as a result of the nerve block. His PSA level has risen to 6.9. Prostate MRI in June 2023 showed a prostate volume of 54 cc, with no suspicious lesions seen. He now comes for repeat biopsies, to be done under sedation to avoid the need for a prostatic block. - Genitourinary (Male) Genitourinary: Reports nocturia Past Medical History Past Medical History: Hyperlipidemia, Hypertension, Sleep Apnea/CPAP/BIPAP Additional Past Medical History / Comment(s): HX KIDNEY STONES, uses bipap. ULCERATIVE COLITIS History of Any Multi-Drug Resistant Organisms: None Reported Past Surgical History: Bowel Resection, Orthopedic Surgery, Tonsillectomy Additional Past Surgical History / Comment(s): HX LITHOTRIPSY AND KIDNEY STONE REMOVAL bowel surgery for ulcerated colon. COLONOSCOPY. BRAIN SX FOR ABSCESS- BENIGN. RT BUNIONECTOMY. LT ROTATOR CUFF REPAIR Past Anesthesia/Blood Transfusion Reactions: No Reported Reaction Smoking Status: Never smoker - Past Family History Brother(s) Family Medical History: Cancer Medications and Allergies Home Medications Medication Instructions Recorded Confirmed Type Simvastatin [Zocor] 20 mg PO HS 07/20/18 07/11/24 History Loratadine [Claritin] 10 mg PO DAILY 07/30/23 07/11/24 History Multivitamin [Multivitamins Adult See Rx Instructions .ROUTE .COMPLEX 07/30/23 07/11/24 History Gummies] Pramipexole [Mirapex] 0.125 mg PO HS 07/30/23 07/11/24 History amLODIPine [Norvasc] 5 mg PO DAILY 07/30/23 07/11/24 History Cholecalciferol [Vitamin D3 (25 25 mcg PO DAILY 01/28/24 07/11/24 History Mcg = 1000 Iu)] Docusate [Colace] 200 mg DAILY PRN 01/28/24 07/11/24 History Fluocinonide 0.05% [Lidex 0.05% See Rx Instructions .ROUTE 01/28/24 07/11/24 History cream] .COMPLEX PRN Calcium Carbonate/Vitamin D3 1 tab PO DAILY 07/11/24 07/11/24 History [Calcium 600 mg-D3 20 mcg (800 unit)] Celium Fiber 1 dose PO DAILY 07/11/24 07/11/24 History Folic Acid 0.8 mg PO DAILY 07/11/24 07/11/24 History Losartan [Cozaar] 25 mg PO DAILY 07/11/24 07/11/24 History Magnesium Calcium 250 mg PO DAILY 07/11/24 07/11/24 History Methalcelulose 1 dose PO DAILY 07/11/24 07/11/24 History Vit C(Unk) 500 mg PO DAILY 07/11/24 07/11/24 History Allergies Allergy/AdvReac Type Severity Reaction Status Date / Time amoxicillin [From Augmentin] AdvReac FELT HPYER Verified 07/11/24 09:26 AND JITTERY PER PT chlorpheniramine AdvReac FELT HPYER Verified 07/11/24 09:26 [From Ornade] AND JITTERY PER PT clavulanic acid AdvReac FELT HPYER Verified 07/11/24 09:26 [From Augmentin] AND JITTERY PER PT phenylpropanolamine AdvReac FELT HPYER Verified 07/11/24 09:26 [From Ornade] AND JITTERY PER PT Surgical - Exam - General well developed, well nourished, no distress - Respiratory normal respiratory effort - Genitourinary normal penis with no external lesions, testicles non-tender - Rectum Rectum: normal sphincter tone, no masses, other (Prostate mildly enlarged but smooth) - Psychiatric oriented to time, oriented to person, oriented to place, speech is normal, memory intact Assessment and Plan (1) Elevated prostate specific antigen [PSA] Status: Acute Code(s): R97.20 - ELEVATED PROSTATE SPECIFIC ANTIGEN [PSA] SNOMED Code(s): 558021042 Plan: Transrectal ultrasound-guided biopsies of the prostate. The procedures been reviewed in detail with the patient. He is aware of potential risks, which include anesthesia, bleeding, and infection.
[~2024-07-14 07:18] MED LIST changes: +DEXAMETHASONE SOD PHOSPHATE 4 MG/ML 1 ML VIAL IV ONE; +HYDROmorphone 0.5 MG/0.5 ML SYRINGE IVP PRN; -LACTATED RINGERS 1,000 ML IV SCH; +LIDOCAINE 1% (10MG/ML) FOR IV START INTRADERMA PRN; +MIDAZOLAM 2 MG/2 ML VIAL IV PRN; +ONDANSETRON 4 MG/2 ML VIAL IVP ONE; +fentaNYL (PF) 50 MCG/ML 2 ML AMP IVP PRN
[2024-07-14] MEDS: IV FLUID CONTINUATION 1,000 ML IV ONE (07:41)
[2024-07-14 07:42] VITALS: TEMP 97.2
[2024-07-14] MEDS: LACTATED RINGERS 1,000 ML IV SCH (07:48)
[2024-07-14] MEDS: GENTAMICIN 40 MG/ML 2 ML VIAL IM PRN (07:57)
[2024-07-14] MEDS ORDERED: PROPOFOL 10 MG/ML 20 ML VIAL IV ONE (09:47)
[2024-07-14] MEDS ORDERED: LIDOCAINE 1% INJ 10MG/ML (20 ML MDV) ONE (09:47)
--- NOTE | 2024-07-14 10:18 | P.OP ---
Date of Procedure: 07/14/24 Preoperative Diagnosis: Elevated PSA level, family history of prostate cancer Postoperative Diagnosis: Same Procedure(s) Performed: Transrectal ultrasound of the prostate with ultrasound-guided biopsies Anesthesia: MAC Surgeon: Shine Gregory Estimated Blood Loss (ml): 5 IV fluids (ml): 300 Indications for Procedure: The patient is an 78-year-old male whose father and 2 brothers have prostate cancer. The patient underwent a prostate ultrasound with biopsies in March 2021, showing no evidence of malignancy. His prostate volume at that time was 29 cc, and his PSA level was 4.3. He developed erectile dysfunction following those biopsies, presumably as a result of the nerve block. His PSA level has risen to 6.9. Prostate MRI in June 2023 showed a prostate volume of 54 cc, with no suspicious lesions seen. He now comes for repeat biopsies, to be done under sedation to avoid the need for a prostatic block. Operative Findings: No palpable lesions, no suspicious lesions seen on ultrasound. Description of Procedure: The patient was taken to the operating room and placed in the left lateral decubitus position. MALIK revealed the prostate to be mildly enlarged but smooth. The [facility] transrectal ultrasound probe was placed intrarectally. The prostate was imaged in both the axial and sagittal planes, revealing a prostate volume of 37.2 mL. No suspicious lesions were seen within the prostate. Using the Biopty gun, 12 biopsies were obtained from the peripheral zone utilizing a standard template. An additional 2 biopsies were obtained from the transitional zone on each side. Once the procedure was completed, the ultrasound probe was removed. The patient tolerated the procedure well was taken to the recovery room stable condition.
[2024-07-14 10:51] VITALS: BP 128/80; PULSE 65; RESP 16
== END 2024-07-14 11:01 | disposition home or self-care (01) ==
LOC: OR 07:18
PROVIDERS: ATTEND Urology
DX: C61 Malignant neoplasm of prostate (principal); N40.0 Benign prostatic hyperplasia without lower urinary tract symptoms; I10 Essential (primary) hypertension; N52.9 Male erectile dysfunction, unspecified; G47.33 Obstructive sleep apnea (adult) (pediatric); E78.5 Hyperlipidemia, unspecified; Z80.42 Family history of malignant neoplasm of prostate; Z88.0 Allergy status to penicillin; Z88.1 Allergy status to other antibiotic agents; Z90.89 Acquired absence of other organs; Z99.89 Dependence on other enabling machines and devices; Z79.899 Other long term (current) drug therapy; Z88.8 Allergy status to other drugs, medicaments and biological substances
CPT/HCPCS: 55700; 88305; J1580; J2003; J2704

== ENCOUNTER → 2024-08-28 | Outpatient (CLI) | payer MEDICARE ==
--- NOTE | 2024-08-31 09:37 | MR ---
EXAMINATION TYPE: MR Prostate wo/w con DATE OF EXAM: 08/28/2024 10:57 AM COMPARISON: 07/20/2023 CLINICAL INDICATION: Male, 78 years old with history of C61 PROSTATE CANCER; involving the left later al gland mid apex and base/ Prev MR on pacs / 10ml denita given PSA 6.9 06/10/24 PSA 7.11 03/10/24 PSA 6. 8 01/18/24 TECHNIQUE: Multi-planar, multi-sequence imaging of the pelvis is performed prior to and following the uncomplicated administration of bolus intravenous gadolinium. IV Contrast: 10ml mL Gadobutrol Interpretive Criteria: PI-RADS v2.1 SERUM PSA: PSA 6.9 06/10/24 PSA 7.11 03/10/24 PSA 6.8 01/18/24 SURGICAL PATHOLOGY: Positive biopsy involving the left peripheral gland apex and base 07/14/2024 FINDINGS: Prostatic dimensions: 4.1 x 4.2 x 3.6 cm cm. "Bullet" Volume:40.57 (PSA density=0.17 ng/mL/mL) CENTRAL GLAND (Central and Transition Zones/CZ+TZ): Low T2 signal mass measuring 10 x 9 mm with some arterial enhancement correlating with biopsy site of positive malignancy. Additionally, multiple bilateral, heterogenous appearing hypertrophic stromal n odules. (PI-RADS 4) PERIPHERAL ZONE (PZ): Intrinsic high T1 signal seen within the peripheral zone worse in the lateral aspect of the right wit h extension to the anterior peripheral zone also some signal focus of high T1 signal in the left post erior lateral peripheral zone. Bilateral linear, indistinct wedgelike areas of low ADC, and low T2 si gnal, No evidence of masslike abnormality, or localized perfusional hypervascularity, to further sugg est a focus of clinically significant prostate cancer. (PI-RADS 2) SEMINAL VESICLES (SV): Symmetric and unremarkable. PERIPROSTATIC TISSUES: Unremarkable. LYMPH NODES: No enlarged pelvic lymph node. REMAINING PELVIS: Bladder wall is within normal limits given distention. No abnormal free or organized intrapelvic fluid collection. No pathologic bowel dilation or mural thickening. Bilateral fat containing inguinal hernias. OSSEOUS STRUCTURES: No suspicious osseous abnormality. IMPRESSION: 1. Post biopsy changes to the prostate gland. 2. PI-RADS 4 Lesion in the left central zone, mid gland measuring 10 x 9 mm. 3. Mild BPH, estimated gland volume 40.57 (PSA density=0.17 ng/mL/mL) 4. No suspicious osseous lesion. No lymphadenopathy. No evidence of prostate adenocarcinoma involving the periprostatic tissues. [facility], , 08/31/2024 9:35 AM
== END | disposition home or self-care (01) ==
LOC: RADMRIMAIN 09:17
PROVIDERS: ATTEND Radiology Radiation Oncology
DX: C61 Malignant neoplasm of prostate (principal); N40.0 Benign prostatic hyperplasia without lower urinary tract symptoms
CPT/HCPCS: 72197; A9585

== ENCOUNTER → 2024-09-01 | Outpatient (CLI) | payer MEDICARE ==
--- NOTE | 2024-09-01 15:37 | NM ---
EXAMINATION TYPE: NM bone scan whole body DATE OF EXAM: 09/01/2024 COMPARISON: Lumbar spine x-ray 09/01/2024 CLINICAL INDICATION: Male, 78 years old with history of C61 prostate ca; Delayed whole-body scanning was performed following the injection of 23.7 mCi Tc 99m MDP. Images acq uired 3 hours post injection. FINDINGS: There is focal uptake in the anterior left L4-5 region. This area is an area of disc space narrowing and facet change. Suspicious change is not evident. Mild uptake is at the bilateral shoulders and sternoclavicular junctions, sternal manubrial junction first carpal metacarpal junctions bilaterally and at the bilateral knees and right great toe likely o n the basis of degenerative changes. No suspicious photopenic defects are evident. No suspicious focal hot nodules identified IMPRESSION: 1. Probable degenerative change left L4-5 region 2. Additional areas of more typical degenerative type uptake. 3. No suspicious changes for metastatic disease [facility], , 09/01/2024 3:34 PM
== END | disposition home or self-care (01) ==
LOC: RADNMMAIN 10:28
PROVIDERS: ATTEND Radiology Radiation Oncology
DX: C61 Malignant neoplasm of prostate (principal)
CPT/HCPCS: 78306

== ENCOUNTER → 2024-09-14 | Outpatient (CLI) | payer MEDICARE ==
[2024-09-14 15:14] LABS: Basophils # (A) 0.02 X 10*3/uL (0.00-0.10); Basophils % (A) 0.3 %; Eosinophils # (A) 0.11 X 10*3/uL (0.04-0.35); Eosinophils % (A) 1.9 %; HGB 15.5 g/dL (13.0-17.0); Lymphocytes # (A) 1.23 X 10*3/uL (0.90-5.00); Lymphocytes % (A) 21.2 %; MCH 32.1 pg (27.0-32.0); MCHC 32.3 g/dL (32.0-37.0); MCV 99.4 FL (80.0-97.0); Mean Platelet Volume 10.5 FL (9.5-12.2); Monocytes # (A) 0.56 X 10*3/uL (0.20-1.00); Monocytes % (A) 9.7 %; NRBC Per 100 WBC 0 X 10*3/uL (0.00-0.01); Neutrophils # (A) 3.86 X 10*3/uL (1.80-7.70); Neutrophils % (A) 66.6 %; Platelet Count 206 X 10*3/uL (140-440); RBC 4.83 X 10*6/uL (4.40-5.60); RDW 12.4 % (11.5-14.5)
[2024-09-14 15:26] LABS: BUN/Creat Ratio 19.33 Ratio (12.00-20.00); Blood Urea Nitrogen 17.4 mg/dL (9.0-27.0); Carbon Dioxide 27.2 mmol/L (21.6-31.8); Chloride 107 mmol/L (96-109); Glucose 94 mg/dL (70-110); Potassium 4.3 mmol/L (3.5-5.5); Sodium 143 mmol/L (135-145)
== END | disposition home or self-care (01) ==
LOC: LABPAT 08:54
PROVIDERS: ATTEND Urology
DX: Z01.812 Encounter for preprocedural laboratory examination (principal); C61 Malignant neoplasm of prostate
CPT/HCPCS: 80048; 85025

== ENCOUNTER 2024-09-21 11:46 | Day surgery (SDC) | payer MEDICARE ==
--- NOTE | 2024-09-20 21:21 | P.GSHP ---
History of Present Illness H&P Date: 09/20/24 Chief Complaint: Prostate cancer The patient is an 78-year-old white male with recently diagnosed prostate cancer. His PSA level is 6.9. 5 of 14 biopsies showed evidence of prostate cancer with a maximal [place] score of 7 (3+4). He has elected to be treated with radiation therapy. - Cardiovascular Cardiovascular: Reports high blood pressure - Genitourinary (Male) Genitourinary: Reports nocturia Past Medical History Past Medical History: Cancer, Hyperlipidemia, Hypertension, Osteoarthritis (OA), Seizure Disorder, Sleep Apnea/CPAP/BIPAP Additional Past Medical History / Comment(s): HX KIDNEY STONES, uses bipap, RLS, current prostate cancer. ulcerative colitis. last seizure 1998, r/t brain abscess. periodic itching - feels related to worrying. lower leg edema- pt states from BP med. History of Any Multi-Drug Resistant Organisms: None Reported Past Surgical History: Bowel Resection, Orthopedic Surgery, Tonsillectomy Additional Past Surgical History / Comment(s): HX LITHOTRIPSY AND KIDNEY STONE REMOVAL bowel surgery for ulcerated colon, prostate bx. COLONOSCOPY. BRAIN SX FOR ABSCESS-BENIGN. RT BUNIONECTOMY. LT ROTATOR CUFF REPAIR Past Anesthesia/Blood Transfusion Reactions: No Reported Reaction Smoking Status: Never smoker - Past Family History Brother(s) Family Medical History: Cancer Medications and Allergies Home Medications Medication Instructions Recorded Confirmed Type Simvastatin [Zocor] 20 mg PO HS 07/20/18 09/19/24 History Loratadine [Claritin] 10 mg PO DAILY 07/30/23 09/19/24 History Pramipexole [Mirapex] 0.125 mg PO 1800 07/30/23 09/19/24 History amLODIPine [Norvasc] 5 mg PO DAILY 07/30/23 09/19/24 History Cholecalciferol [Vitamin D3 (25 25 mcg PO DAILY 01/28/24 09/19/24 History Mcg = 1000 Iu)] Docusate [Colace] 100 mg PO DAILY 01/28/24 09/19/24 History Fluocinonide 0.05% [Lidex 0.05% See Rx Instructions .ROUTE 01/28/24 09/19/24 History cream] .COMPLEX PRN Calcium Carbonate/Vitamin D3 1 tab PO DAILY 07/11/24 09/19/24 History [Calcium 600 mg-D3 20 mcg (800 unit)] Celium Fiber 24 gm PO DAILY 07/11/24 09/19/24 History Folic Acid 800 mcg PO DAILY 07/11/24 09/19/24 History Losartan [Cozaar] 25 mg PO DAILY 07/11/24 09/19/24 History Magnesium Calcium 250 mg PO Q48H 07/11/24 09/19/24 History Methalcelulose 1 dose PO DAILY 07/11/24 09/19/24 History Vit C(Unk) 500 mg PO DAILY 07/11/24 09/19/24 History Benadryl Gel 1 oz TOPICAL HS PRN 09/19/24 09/19/24 History Ibuprofen [Motrin Ib] 400 mg PO DIRECTED PRN 09/19/24 09/19/24 History Unk Multi Vitamin 1 tab PO DAILY 09/19/24 09/19/24 History Allergies Allergy/AdvReac Type Severity Reaction Status Date / Time amoxicillin [From Augmentin] AdvReac FELT HPYER Verified 09/19/24 15:34 AND JITTERY PER PT chlorpheniramine AdvReac FELT HPYER Verified 09/19/24 15:34 [From Ornade] AND JITTERY PER PT clavulanic acid AdvReac FELT HPYER Verified 09/19/24 15:34 [From Augmentin] AND JITTERY PER PT phenylpropanolamine AdvReac FELT HPYER Verified 09/19/24 15:34 [From Ornade] AND JITTERY PER PT Surgical - Exam - General well developed, well nourished, no distress - Respiratory normal respiratory effort - Genitourinary normal penis with no external lesions, testicles non-tender - Psychiatric oriented to time, oriented to person, oriented to place, speech is normal, memory intact Assessment and Plan (1) Malignant neoplasm of prostate Status: Acute Code(s): C61 - MALIGNANT NEOPLASM OF PROSTATE SNOMED Code(s): 062898254 Plan: The SpaceOar implant has been reviewed in detail with the patient. He understands that the rationale for this is to create separation between the prostate and rectum, thus reducing the risk of radiation proctitis. The material begins to breakdown 12-13 weeks following implant, and is reabsorbed by the body. Risks include anesthesia, bleeding, infection, and perineal discomfort. He understands that if the rectal wall is perforated the procedure will need to be aborted.
[2024-09-21 12:15] VITALS: TEMP 97.3
[2024-09-21] MEDS: LACTATED RINGERS 1,000 ML IV SCH (12:30)
[2024-09-21] MEDS: IV FLUID CONTINUATION 1,000 ML IV ONE (12:31)
[2024-09-21] MEDS ORDERED: PROPOFOL 10 MG/ML 20 ML VIAL IV ONE (13:03)
[2024-09-21] MEDS ORDERED: LIDOCAINE 1% INJ 10MG/ML (20 ML MDV) ONE (13:03)
[2024-09-21] MEDS: LIDOCAINE 1% INJ 10MG/ML (30 ML VIAL-PF) SQ ONE (13:12)
[2024-09-21] MEDS: CEFAZOLIN IV ONE (13:18)
[2024-09-21] MEDS: FLUID CONTINUATION IV ONE (13:18)
[2024-09-21 13:38] VITALS: RESP 18
--- NOTE | 2024-09-21 13:40 | P.OP ---
Date of Procedure: 09/21/24 Preoperative Diagnosis: Adenocarcinoma the prostate Postoperative Diagnosis: Same Procedure(s) Performed: SpaceOAR implant Anesthesia: MAC Surgeon: Shine Gregory Estimated Blood Loss (ml): 5 IV fluids (ml): 50 Pathology: none sent Condition: stable Disposition: PACU Indications for Procedure: The patient is an 78-year-old white male with recently diagnosed prostate cancer. His PSA level is 6.9. 5 of 14 biopsies showed evidence of prostate cancer with a maximal [place] score of 7 (3+4). He has elected to be treated with radiation therapy. He now comes for SpaceOAR implant to reduce the risk of radiation-induced rectal toxicity. Operative Findings: 17 mm separation created between prostate and rectum. Description of Procedure: The patient was taken to the operating room and placed in the dorsolithotomy position, with his legs supported in Lew stirrups. The external genitalia was prepped and draped sterilely. The [employer] transrectal ultrasound probe was placed intrarectally. The prostate was imaged. The probe was then placed within the stabilizing stand. A spinal needle was advanced under ultrasonic guidance to the level of the urogenital diaphragm, and lidocaine was used to in filtrate the tissues as the needle was withdrawn. Next, the SpaceOAR needle was passed through the midline of the perineum, 1-2 cm anterior to the anal opening. The needle was slowly advanced under ultrasonic guidance until the needle tip was located within the fat plane between the prostate and rectum, at the level of the mid prostate gland. The needle was confirmed to be midline on the axial imaging. A small amount of normal saline was injected for hydrodissection. Next, the SpaceOAR components were mixed and loaded into the Y connector per protocol. The Y connector was then connected to the needle, and the components were injected slowly over a course of approximately 12 seconds. A total of 11 ml was injected. Significant distance was created between the prostate and rectum, as desired. It should be noted that at no point was there any concern of rectal perforation. The needle was withdrawn, as well as the transrectal ultrasound probe, and the procedure was terminated. The patient tolerated the procedure well and was taken to the recovery room in stable condition.
[2024-09-21 13:52] VITALS: BP 138/78; PULSE 75
== END 2024-09-21 14:16 | disposition home or self-care (01) ==
LOC: OR 11:46
PROVIDERS: ATTEND Urology
DX: C61 Malignant neoplasm of prostate (principal); E78.5 Hyperlipidemia, unspecified; G25.81 Restless legs syndrome; G40.909 Epilepsy, unspecified, not intractable, without status epilepticus; G47.33 Obstructive sleep apnea (adult) (pediatric); I10 Essential (primary) hypertension; M19.90 Unspecified osteoarthritis, unspecified site; Z88.0 Allergy status to penicillin; Z88.1 Allergy status to other antibiotic agents; Z92.3 Personal history of irradiation; Z99.89 Dependence on other enabling machines and devices; Z90.89 Acquired absence of other organs; Z79.899 Other long term (current) drug therapy
CPT/HCPCS: 55874; C1889; J0690; J2003 ×2; J2704

== ENCOUNTER → 2024-10-13 | Outpatient (CLI) | payer MEDICARE ==
[2024-10-13 13:44] VITALS: BP 136/69; PULSE 68; RESP 16; TEMP 98.5
--- NOTE | 2024-10-13 14:07 | P.PROGSL ---
Subjective DATE: 10/13/2024 FOLLOW UP VISIT. Patient with obstructive sleep apnea hypopnea syndrome return to sleep center for follow-up visit. Information from previous visit have been reviewed. Patient is using PAP equipment every night for the whole night, getting PAP supplies in time. The patient does not have significant problems with the mask, PAP unit and humidification. [place] sleepiness scale is 8, which is in normal range. I checked information from PAP unit. PAP unit pressure maximal inspiratory pressure 17, minimal expiratory pressure 7, pressure support 4, average pressure 12.6 or 8.6 cm H2O. Usage is 100% for more then 4 hours, average 8.7 hours per night. Leak is 18 l/m, which is in acceptable range. Apnea Hypopnea Index is 4.3, which is normal. MEDICATIONS have been reviewed, please see below. During physical exam: GENERAL: A pleasant patient without any distress. VITAL SIGNS: Please see below, weight is 198 lbs. HEENT: PERRLA, EOMI.low position of soft palate, [place] 3. NECK: Supple. No JVD. LUNGS: Clear to percussion and to auscultation. Good air exchange. No wheezing or rhonchi. HEART: S1, S2 regular. ABDOMEN: Soft and nontender.[] EXTREMITIES: No clubbing or cyanosis. LABORATORY AIDE: Awake, alert, and oriented x3. No focal deficit. Impressions: 1. Obstructive sleep apnea-hypopnea syndrome. Patient demonstrated great compliance with treatment, benefiting from treatment. 2. Restless leg syndrome and periodic limb movements. 3. Hypertension. 4. Episodes of anxiety. 5. History of kidney stone status post surgical treatment. 6. Back problems. 7. History of sarcoidosis in the past. 8. Status post brain abscess surgery. 9. Status post tonsillectomy. 10. Status post rotator cuff repair. Plan: 1. Continue using PAP equipment every night for the whole night. 2. Sleep hygiene with regular time in bed for at least 7.5-8 hours. 3. PAP unit should stay lower then position of the head. 4. Advised patient to remove all remaining water from humidifier canister daily and make it dry after each usage. Refill canister with fresh distilled water before each usage. 5. Watching weight. 6. Precautions related to driving. No driving if feel any sleepiness. 7. I will maintain prescription for PAP supplies including mask, tube, filters. 8. Follow up visit in 8 months or earlier if patient has any problems. Thank you very much for allowing me to participate in the management of your patient. Clyde Cruz MD, PhD, FAASM. Diplomat of [place] [employer], Sleep Medicine Board by [place] [employer] [facility] [place] Objective - Vital Signs Vital Signs: Vital Signs Temp 98.5 F 10/13/24 13:37 Pulse 68 10/13/24 13:37 Resp 16 10/13/24 13:37 BP 136/69 10/13/24 13:37 Pulse Ox 96 10/13/24 13:37 FiO2 Intake & Output 10/12/24 10/13/24 10/13/24 18:59 06:59 18:59 Weight 89.811 kg Home Medications: Home Medications Medication Instructions Recorded Confirmed Type Simvastatin [Zocor] 20 mg PO HS 07/20/18 09/19/24 History Loratadine [Claritin] 10 mg PO DAILY 07/30/23 09/19/24 History Pramipexole [Mirapex] 0.125 mg PO 1800 07/30/23 09/19/24 History amLODIPine [Norvasc] 5 mg PO DAILY 07/30/23 09/19/24 History Cholecalciferol [Vitamin D3 (25 25 mcg PO DAILY 01/28/24 09/19/24 History Mcg = 1000 Iu)] Docusate [Colace] 100 mg PO DAILY 01/28/24 09/19/24 History Fluocinonide 0.05% [Lidex 0.05% See Rx Instructions .ROUTE 01/28/24 09/19/24 History cream] .COMPLEX PRN Calcium Carbonate/Vitamin D3 1 tab PO DAILY 07/11/24 09/19/24 History [Calcium 600 mg-D3 20 mcg (800 unit)] Celium Fiber 24 gm PO DAILY 07/11/24 09/19/24 History Folic Acid 800 mcg PO DAILY 07/11/24 09/19/24 History Losartan [Cozaar] 25 mg PO DAILY 07/11/24 09/19/24 History Magnesium Calcium 250 mg PO Q48H 07/11/24 09/19/24 History Methalcelulose 1 dose PO DAILY 07/11/24 09/19/24 History Vit C(Unk) 500 mg PO DAILY 07/11/24 09/19/24 History Benadryl Gel 1 oz TOPICAL HS PRN 09/19/24 09/19/24 History Ibuprofen [Motrin Ib] 400 mg PO DIRECTED PRN 09/19/24 09/19/24 History Unk Multi Vitamin 1 tab PO DAILY 09/19/24 09/19/24 History
== END ==
LOC: 3 N SLEEP 13:23
PROVIDERS: ATTEND Internal Medicine
DX: G47.33 Obstructive sleep apnea (adult) (pediatric) (principal); G25.81 Restless legs syndrome; I10 Essential (primary) hypertension; F41.9 Anxiety disorder, unspecified; Z87.442 Personal history of urinary calculi; Z98.890 Other specified postprocedural states; Z90.89 Acquired absence of other organs; Z87.898 Personal history of other specified conditions; Z99.89 Dependence on other enabling machines and devices; Z88.0 Allergy status to penicillin; Z88.1 Allergy status to other antibiotic agents; Z88.8 Allergy status to other drugs, medicaments and biological substances
CPT/HCPCS: 99212